=== PATIENT | female | born 1940 | race Caucasian/White ===

== ENCOUNTER → 2021-07-22 | Day surgery (SDC) | payer MEDICARE, BC ==
[~2021-07-22] MED LIST: Dextrose 5%-Lactated Ringers 1,000 ML IV SCH; Propofol 200 MG/20 ML SDV ONE; fentaNYL 100 MCG/2 ML SDV ONE
[2021-07-22 10:15] VITALS: PULSE 52
[2021-07-22 10:26] VITALS: BP 133/71
--- NOTE | 2021-07-26 11:21 | OR ---
DATE OF PROCEDURE: 07/22/2021 SURGEON: Nj Ramirez MD PREOPERATIVE DIAGNOSIS: History of colon polyps. POSTOPERATIVE DIAGNOSIS: Recurrent small polyps in ascending colon and splenic flexure. PROCEDURE PERFORMED: Flexible colonoscopy with polypectomy x2 by snare technique. ANESTHESIA: IV sedation. INDICATION FOR PROCEDURE: An 81-year-old presenting for followup colonoscopy. She had previous history of colon polyps. Overall, her health has remained fairly good. Given this, the patient is referred for a colonoscopy with biopsies and/or polypectomy as indicated. Potential risks including bleeding and perforation were discussed, and the patient wishes to proceed. DETAILS OF PROCEDURE: The patient was taken to the operating room and placed in a left lateral decubitus position. IV sedation was administered after which the initial digital rectal exam was performed and was unremarkable. Colonoscope was then passed into the rectum with retroflexion revealing uncomplicated hemorrhoidal columns. The scope was eventually passed to the cecum. The prep was quite good. To that level, there was no diverticula. No areas of colitis. There were 2 small polyps, one was a very tiny polyp, almost the size of a pinhead in the ascending colon, and the second was roughly an 8 mm polyp in the splenic flexure of the colon. Both were removed by means of cautery snare technique and sent for histologic evaluation. No complications were evident. The scope was then withdrawn and the procedure then concluded. We will call the patient with regard to the pathology findings. These will almost certainly be benign; however, with the patient showing recurrent tendency toward polyp formation, one might consider a repeat colonoscopy in 3 years if her health remains satisfactory. Nj Ramirez MD /[id number]
== END ==
LOC: JP.SDS 07:11
PROVIDERS: ATTEND Surgery
DX: Z12.11 Encounter for screening for malignant neoplasm of colon (principal); D12.3 Benign neoplasm of transverse colon; K64.9 Unspecified hemorrhoids; E78.5 Hyperlipidemia, unspecified; E11.9 Type 2 diabetes mellitus without complications
CPT/HCPCS: 45385; 88305; J2704; J3010; J7121